=== PATIENT | male | born 1970 | race Two or more races ===

== ENCOUNTER → 2019-08-28 10:49 | Outpatient (CLI) | payer OTHER, SELFPAY ==
--- NOTE | ~2019-08-28 | US_ITS ---
EXAMINATION: US abdomen complete DATE: 08/28/2019 11:14 INDICATION: Abnormal liver function tests. TECHNIQUE: Multiple grayscale and Doppler ultrasound images of the abdomen were obtained. COMPARISON: None FINDINGS: The visualized portions of the head, body, and tail of the pancreas are normal. Abdominal a shannon is normal in caliber. Inferior vena cava is normal. The liver is normal without focal lesion. No liver surface nodularity. There is normal flow in main portal vein. The gallbladder is normal in siz e. No gallstones or gallbladder wall thickening. There was no sonographic Florez sign. The common claudia t is normal and measures 3 mm. The kidneys are normal in size. The spleen is normal in size. IMPRESSION: 1. Normal complete abdomen ultrasound. Reviewed, dictated and finalized at location A. F [employer]
== END ==
PROVIDERS: Visit Provider Emergency Medicine
DX: K76.9 Liver disease, unspecified (principal)
CPT/HCPCS: 76700

== ENCOUNTER 2019-12-31 00:21 | Outpatient (CLI) | payer OTHER, SELFPAY ==
[2019-12-31 17:00] LABS: SARS-CoV-2 RNA PCR Negative
== END 2019-12-31 00:22 | disposition home or self-care (01) ==
LOC: ANHCOVIDDT 00:21
PROVIDERS: PCP Emergency Medicine; Visit Provider Internal Medicine Gastroenterology
DX: Z01.818 Encounter for other preprocedural examination (principal); Z11.59 Encounter for screening for other viral diseases
CPT/HCPCS: 87635; C9803; U0003

== ENCOUNTER 2020-01-02 00:27 | Day surgery (SDC) | payer OTHER, SELFPAY ==
[2019-12-27 13:06] VITALS: BMI 29.0
[2020-01-02 06:30] VITALS: BP 127/101; PULSE 79; RESP 16; TEMP 36.2; O2SAT 100
[2020-01-02] MEDS: LACTATED RINGERS 1,000 ML 150 ML IV CONT (06:40)
--- NOTE | 2020-01-02 06:57 | WPDANESEPPF ---
Anes - Initial Pre Proc Eval Procedure: Operation Date: 01/02/20 07:30 Proposed Procedures p Screening Colonoscopy - Tono Giron MD Date/Time: 01/02/20 06:57 Surgeon: Tono Giron MD Pre Op Diagnosis: neoplasm screening Patient Data Age: 49 Gender: M Height: 5 ft 9 in Weight: 90.3 kg Last Vital Signs Temp 36.2 C L 01/02/20 06:30 Pulse 79 01/02/20 06:30 Resp 16 01/02/20 06:30 BP 127/101 H 01/02/20 06:30 Pulse Ox 100 01/02/20 06:30 Allergies Allergy/AdvReac Type Severity Reaction Status Date / Time No Known Allergies Allergy Unverified 01/02/20 06:28 Home Medications Medication Instructions Recorded Confirmed Type rmltrsnj-hev-qgdzf-vit K-lycop 400 tablet PO DAILY 12/27/19 12/27/19 History [Men's Multivitamin] omega 1-ops-nxk-fish oil [[place]-3] 350 cap PO DAILY 12/27/19 12/27/19 History rosuvastatin 10 mg PO DAILY 12/27/19 12/27/19 History Patient hx anesthesia problems: none Family hx anesthesia problems: none [facility] Past Medical History Medical History (Updated 01/02/20 @ 06:59 by Zander Sosa MD) Hyperlipidemia Social History Social History Smoking status: Never smoker Alcohol intake: never Gender identity (if verbalized by the patient): Male Anes - Eval Final PreProcedure Day of Procedure 01/02/20 06:57 Patient weight: overweight Heart: regular rate and rhythm Lungs: clear to auscultation Airway: Mallampati scale class II Neurological: alert and oriented Last oral intake: >/= 8 hours ASA classification: II Emergent: no Anesthetic plan: proceed Anesthesia type and monitoring: general GIVS and standard monitoring Informed Consent: The patient's anesthetic plan and its attendant risks and benefits were discussed with the patient/family/POA. Questions were solicited and answers provided to the satisfaction of the patient/family/POA.
--- NOTE | 2020-01-02 07:18 | P.HP_ITS ---
History of Present Illness History of Present Illness Consent: Risks, benefits, and alternatives have been discussed and questions answered. Patient agrees to proceed with procedure. Chief complaint: neoplasm screening Narrative: Arthur Mcdowell is a 49 year old male referred for colon cancer screening [facility] Past Medical History Medical History (Updated 01/02/20 @ 07:18 by Tono Giron MD) Hyperlipidemia Social History Social History Smoking status: Never smoker Alcohol intake: never Gender identity (if verbalized by the patient): Male Meds Home Medications and Allergies Home Medications Medication Instructions Recorded Confirmed Type aoeqrjxy-xyr-jxnbq-vit K-lycop 400 tablet PO DAILY 12/27/19 12/27/19 History [Men's Multivitamin] omega 6-eqm-coa-fish oil [[place]-3] 350 cap PO DAILY 12/27/19 12/27/19 History rosuvastatin 10 mg PO DAILY 12/27/19 12/27/19 History Allergies Allergy/AdvReac Type Severity Reaction Status Date / Time No Known Allergies Allergy Unverified 01/02/20 06:28 Vital Signs Vital Signs - 24 hr 01/02/20 06:30 Temperature 36.2 C L Pulse Rate 79 Respiratory Rate 16 Blood Pressure 127/101 H Pulse Oximetry 100 Exam Resp: Auscultation: clear to auscultation bilaterally Cardio: Rate: regular rate Rhythm: regular rhythm GI: GI Palp: Yes Soft to palpation and No Tenderness to palpation present (GI) Assessment and Plan Assessment and plan (1) Colon cancer screening: Code(s): Z12.11 - Encounter for screening for malignant neoplasm of colon Status: Acute Assessment and Plan: Colonoscopy with possible biopsy or polypectomy or cautery or injection of substances.
[2020-01-02 07:39] VITALS: BP 105/70; PULSE 60; RESP 15; O2SAT 97
[2020-01-02 07:49] VITALS: BP 109/77; PULSE 63; RESP 19; O2SAT 98
[2020-01-02 07:59] VITALS: BP 124/81; PULSE 56; RESP 18; O2SAT 98
== END 2020-01-02 08:20 | disposition home or self-care (01) ==
PROVIDERS: PCP Emergency Medicine; Visit Provider Internal Medicine Gastroenterology
PROC: 0DJD8ZZ Inspection of Lower Intestinal Tract, Via Natural or Artificial Opening Endoscopic (ICD-10-PCS; CPT 45378; principal; 2020-01-02 07:30)
DX: Z12.11 Encounter for screening for malignant neoplasm of colon (principal); E78.5 Hyperlipidemia, unspecified
CPT/HCPCS: 45378; J2704; J7120

== ENCOUNTER 2021-12-25 09:46 | Outpatient (CLI) | payer OTHER, SELFPAY ==
--- NOTE | ~2021-12-25 | XR_ITS ---
XR knee RT min 4V 12/25/2021 10:03 Indication: Right knee pain Procedure: 4 views right knee Comparison: No prior studies for comparison. Findings: No fracture, subluxation or dislocation. No significant joint effusion. No joint space narr owing. There is anatomic alignment. Impression: 1: No significant bone or joint abnormality. Reviewed, dictated and finalized at location B. Impression: 1: No significant bone or joint abnormality.
--- NOTE | ~2021-12-25 | XR_ITS ---
XR knee LT min 4V 12/25/2021 10:04 INDICATION: Left knee pain PROCEDURE: 4 views left knee COMPARISON: No prior studies for comparison. FINDINGS: Fracture, dislocation or subluxation is not identified. No significant joint effusion. The soft tissues appear within normal limits. No foreign bodies are identified. IMPRESSION: 1: NO ACUTE BONE OR JOINT ABNORMALITY IDENTIFIED. Reviewed, dictated and finalized at location B.
== END 2021-12-25 09:47 | disposition home or self-care (01) ==
LOC: ANHIMG 09:46
PROVIDERS: PCP Internal Medicine; Visit Provider Nurse Practitioner
DX: M25.561 Pain in right knee (principal); M25.562 Pain in left knee
CPT/HCPCS: 73564

== ENCOUNTER 2023-01-20 08:10 | Outpatient (CLI) | payer OTHER, SELFPAY ==
--- NOTE | ~2023-01-20 | US_ITS ---
EXAMINATION: US soft tissue groin RT DATE: 01/20/2023 08:52 INDICATION: Right lower quadrant/groin pain. TECHNIQUE: Multiple grayscale and Doppler ultrasound images of the region of concern at the right ing uinal region were obtained. COMPARISON: None FINDINGS: Normal right inguinal lymph node measuring 5 mm in maximal short axis diameter with central fatty hil um. No evident inguinal hernia or other abnormal masses or fluid collections identified. Visualized p ortions of the bilateral testes appear normal and symmetric. IMPRESSION: 1. Normal ultrasound of the right inguinal region. Reviewed, dictated and finalized at location L.
== END 2023-01-20 08:11 | disposition home or self-care (01) ==
PROVIDERS: PCP Internal Medicine; Visit Provider Clinical Nurse Specialist
DX: R10.31 Right lower quadrant pain (principal)
CPT/HCPCS: 76882

== ENCOUNTER 2023-01-28 09:41 | Outpatient (CLI) | payer OTHER, SELFPAY ==
--- NOTE | ~2023-01-28 | CT_ITS ---
CT of the Abdomen and Pelvis: Indication: Abdominal pain Technique: 2.5 mm axial scans were obtained through the abdomen and pelvis following intravenous adm inistration of 100 cc of Omnipaque 350. Dose reduction technique was used on this scan by utilizing a utomated exposure control and iterative reconstruction technique. The dose-length product (DLP) was 5 19.68 mGy-cm. Findings: Scans through the lung bases are unremarkable. The liver, spleen, pancreas, gallbladder, adrenals and kidneys are within normal limits. No evidence of aortic aneurysm. No lymphadenopathy. No bowel obstruction or bowel wall thickening. There is no evidence to suggest acute appendicitis. Images through the pelvis were performed. Urinary bladder is unremarkable. Prostate gland and seminal vesicles are unremarkable. Impression: No significant abnormalities seen. Reviewed, dictated and finalized at [facility]. Impression: No significant abnormalities seen.
== END 2023-01-28 09:42 | disposition home or self-care (01) ==
PROVIDERS: PCP Internal Medicine; Visit Provider Clinical Nurse Specialist
DX: R10.9 Unspecified abdominal pain (principal)
CPT/HCPCS: 74177; Q9967

== ENCOUNTER → 2023-03-14 16:03 | Outpatient (CLI) | payer OTHER, SELFPAY ==
--- NOTE | ~2023-03-14 | MR_ITS ---
MRI of the left hindfoot/midfoot Clinical history: Ganglion cyst Technique: Coronal proton-density and proton-density fat-sat images, axial proton-density and proton- density fat-sat images, and sagittal proton-density and proton-density fat-sat images were acquired. Findings: Syndesmotic ligaments are intact. Anterior and posterior talofibular ligaments, and calcane ofibular ligament are intact. Deltoid ligament is intact. Medial flexor tendons, anterior extensor tendons, peroneal tendons, and Achilles tendon are intact. There is no osteochondral lesion of the talar dome. Bone marrow signals are unremarkable. Joint space s are preserved. No joint effusion present. There is a 7 mm simple appearing cystic lesion superficially at the dorsal lateral aspect of the hind foot, at the location of the marker, compatible with a small ganglion cyst or possibly small schwanno ma. No other soft tissue mass or fluid collection seen. Visualized musculature unremarkable. Plantar fascia intact. Impression: 7 mm circumscribed round lesion at the dorsal lateral aspect of the hindfoot superficially, at the lo cation of the marker. Likely diagnostic considerations would include ganglion cyst or possibly small schwannoma. Postcontrast imaging would be required to definitively determine solid versus cystic lesi on. Reviewed, dictated and finalized at location M. Impression: 7 mm circumscribed round lesion at the dorsal lateral aspect of the hindfoot neumann perficially, at the location of the marker. Likely diagnostic considerations wo uld include ganglion cyst or possibly small schwannoma. Postcontrast imaging wo uld be required to definitively determine solid versus cystic lesion.
== END ==
PROVIDERS: PCP Podiatrist Foot & Ankle Surgery; Visit Provider Podiatrist Foot & Ankle Surgery
DX: M67.472 Ganglion, left ankle and foot (principal)
CPT/HCPCS: 73718

== ENCOUNTER 2023-05-27 03:05 | Day surgery (SDC) | payer OTHER, SELFPAY ==
[2023-05-24 08:38] VITALS: BMI 28.1
--- NOTE | 2023-05-24 08:41 | PC.NURSE ---
Report to the Outpatient Waiting Room, entrance under the green pavilion located off [facility], at time 0600 on date 05/27/23. Planned Procedure Time: 0730. Time changes happen often and if your time is changed the preop area will call you the afternoon before. - You and your visitor will be asked to self-screen and do not enter if you have any COVID symptoms. - A mask is optional within the hospital at this time. Patients may have clear liquids (water, carbonated beverages, clear teas, apple juice) until 3 hours prior to surgery with a maximum of 20 ounces. - No food from midnight until time of surgery Take the following medications with a SIP of water the morning of surgery: NONE DO NOT STOP ANY OF YOUR OTHER PRESCRIPTION MEDICATIONS PRIOR TO SURGERY ?EXCEPT THE FOLLOWING Medications to discontinue per physician: VITAMINS/SUPPLEMENTS Date to take last dose: NO MORE UNTIL AFTER SURGERY Please no make-up, nail algerian, hairspray, perfume, deodorant, or body powder the day of surgery. No jewelry (including any body piercings) or valuables the day of surgery, leave them at home. Please take a shower or bath the night before, or the morning of, surgery with an antibacterial soap. Wear comfortable, loose fitting clothing. - Jewelry must be removed prior to entering the operating room. Rings and piercings that are not removed may be cut off. - The hospital will not accept responsibility for valuables. - Please leave all valuables, including medications, at home the day of surgery. If you are going home after surgery, a licensed regional owner operator truck driver must drive you home. - NO public transportation without another adult if you receive anesthesia. - We recommend that an adult stay with you for 24 hours following discharge. - We also recommend that you do not drive, make important decision, drink alcoholic beverages, or take any drugs that were not prescribed by your health care provider for at least 24 hours after your discharge time. Follow any additional instructions given to you from your surgeon. If you or anyone in your household have experienced Covid symptoms in the past week, please notify your surgeon or the nurse liaison at the phone number below for possible testing. Telephone instructions given to PT - ABHAY HI and asked if any additional questions and then verbalized understanding. Patient advised to call surgeon office or pre surgery nurse liaison [phone] if any additional questions.
[2023-05-27 06:46] VITALS: BP 144/84; PULSE 51; RESP 20; TEMP 36.3; O2SAT 100
[2023-05-27] MEDS: LACTATED RINGERS 1,000 ML 30 ML IV CONT (06:46)
--- NOTE | 2023-05-27 07:12 | WPDHPUPDATE1 ---
History and Physical Update Update Date/Time: 05/27/23 07:12 History and Physical has been reviewed, including an updated exam of the patient. There are NO changes in the patient's condition. Risks, benefits, and alternatives have been discussed and questions answered. Patient agrees to proceed with procedure.
--- NOTE | 2023-05-27 07:15 | WPDANESEPPF ---
Anes - Initial Pre Proc Eval Procedure: Operation Date: 05/27/23 07:30 Proposed Procedures p Excision of Soft Tissue Mass Left Foot - Nando Rojas JR, MD Date/Time: 05/27/23 07:15 Surgeon: Nando Rojas JR, MD Pre Op Diagnosis: soft tissue mass left foot Patient Data Age: 52 Gender: M Height: 1.74 m Weight: 87.9 kg Last Vital Signs Temp 36.3 C L 05/27/23 06:46 Pulse 51 L 05/27/23 06:46 Resp 20 05/27/23 06:46 BP 144/84 H 05/27/23 06:46 Pulse Ox 100 05/27/23 06:46 O2 Del Method Room Air 05/27/23 06:46 Allergies Allergy/AdvReac Type Severity Reaction Status Date / Time No Known Allergies Allergy Verified 05/24/23 08:37 Home Medications Medication Instructions Recorded Confirmed Type wxrkwvaq-zdbxsths-mezpm acid 400 400 tablet PO DAILY 12/27/19 05/27/23 History mcg-vit K 20 mcg-lycop 300 mcg tablet (Men's Multivitamin) omega 3 350 mg-dha 235 mg-epa 90 350 cap PO DAILY 12/27/19 05/27/23 History mg-fish oil 597 mg capsule,delay rel ([place]-3) rosuvastatin 10 mg tablet 10 mg PO DAILY #90 tabs 12/22/22 05/27/23 Rx cetirizine 10 mg tablet (Zyrtec) 10 mg PO DAILY 05/24/23 05/27/23 History Patient hx anesthesia problems: none Family hx anesthesia problems: none Results Review: All pre-operative results and documents have been reviewed as part of the pre-operative evaluation. [facility] Past Medical History Medical History Bilateral knee pain Colon cancer screening Cough Encounter for surgical aftercare following surgery on the skin and subcutaneous tissue Epidermoid cyst Hyperlipidemia Localized swelling, mass and lump, unspecified Screening for prostate cancer Surgical History Surgical History H/O excision of epidermal inclusion cyst History of colonoscopy Family History Family History Sibling Breast cancer Grandparent Breast cancer Malignant neoplasm of prostate Social History Social History (Updated 01/12/23 @ 08:17 by Kandice Toscano MA) Social History: Caffeine-daily coffee Smoking status: Never smoker Alcohol intake: current Drinks per week: 2 Alcohol use details: social Substance use: never Substance use type: does not use Lack of Transportation: No Lack of Food: Never True Current Housing: I Have Housing Concerned About Future Housing: No Difficulty Paying Gas/Electric Bills: No Difficulty Paying for Meds: No Education: Master's Degree or Higher Difficulty w/ Childcare or Family Care: No Living arrangements: with family Occupation/Education: occupation 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 Informed Consent: The patient's anesthetic plan and its attendant risks and benefits were discussed with the patient/family/POA. Questions were solicited and answers provided to the satisfaction of the patient/family/POA.
[2023-05-27] MEDS: ceFAZolin 2 GM/D5W 50 ML 2 GM/50 ML BAG IVPB (07:25)
[2023-05-27] MEDS: LIDOCAINE HCL 2% PF INJ 5 ML VIAL 20 ML INFILTRATE (07:45)
[2023-05-27 08:06] VITALS: BP 105/64; PULSE 64; RESP 16; O2SAT 96
--- NOTE | 2023-05-27 08:13 | W.PM.PROC2 ---
Procedure Note - Detailed Date of Procedure 05/27/23 Pre-op Diagnosis Soft tissue mass left foot Post-op Diagnosis Same Procedure Performed Excision of soft tissue mass left foot Surgeon Nando Rojas JR, DPM Anesthesia MAC and Local Indications Painful firm soft tissue mass left foot Findings Nerve sheath hypertrophy a nodule along the intermediate dorsal cutaneous nerve Description of Procedure PROCEDURE IN DETAIL: Under mild sedation, the patient was brought into the operating room, placed on the operating table in sligth lateral position with a mahan bag. A pneumatic ankle tourniquet was placed about the patient's ankle. Following general anesthesia, a local anesthetic block was obtained about the foot and ankle utilizing 20 cc of a 1:1 of 2% Lidocaine plain and 0.5% Marcaine plain. The foot was then scrubbed, prepped, and draped in the usual aseptic manner. An Esmarch bandage was then used to exsanguinate the patient's foot and the pneumatic ankle tourniquet was then inflated. Surgery began in the following manner: Attention was directed to the lateral aspect of the midfoot and hindfoot region. The incision was made overlying the visible soft tissue mass. The incision was continued deep down through the subcutaneous tissues using sharp and blunt dissection. All bleeders were cauterized as necessary. At this point, the dissection was continued down to the superficial fascial layer at this point a noted 1cm hypertrophic nodule was noted to the intermediate dorsal cutaenous nerve. The entire mass was excised and sent for gross and histopathology. I dissected the fascia overlying the extensor digitorum muslce with blunt tenotomy scissors. The proximal resected healthy portion of the nerve was sutured to the extensor digitorum brevis muscle belly, 4-0 Vicryl was used. Next, the fascia layer overlying the extensor digitorum muscle was repaired overlying the resected nerve. The operative site was flushed with copious amount of sterile saline. Finally, the subcutaneous structures were reapproximated with 4-0 Vicryl. Next, the skin was reapproximated and coapted utilizing 4-0 Monocryl in running subcuticular suture fashion technique. Upon completion of the procedure, the incision was dressed with Steri-Strips, Adaptic, 4x4s, Kerlix, and Coban. The pneumatic ankle tourniquet was then deflated and a prompt hyperemic response was noted to all digits of the foot. A surgical shoe was then applied to the affected lower extremity. It is important to note that Dr. Rojas was present throughout the procedure. The patient did very well with the procedure and the anesthesia. The patient was transferred to the recovery room with vital signs stable and vascular status intact to all toes of the foot. Following a period of postoperative monitoring, the patient will be discharged home on the following written and oral postoperative instructions: 1. Keep the dressing clean, dry, and intact. 2. The patient to be protected weight bearing with a surgical shoe. 3. The patient should ice and elevate the affected foot when at rest. 4. The patient should contact Dr. Rojas for all postop care and if any problems should arise. The patient will follow up in one week for the post op visit. 5. Prescriptions were written for Percocet 5/325, dispensed 40 to be taken 1 p.o. q.4-6 hours as needed for severe pain. Furthermore, the patient should take Aspirin 325 once daily for two weeks to prevent DVT. Estimated Blood Loss 1 Drains No Packing No Pathology Yes (1cm nodule sent for gross and histopathology) Complications No immediate complications Condition Stable Disposition Same day
[2023-05-27 08:35] VITALS: BP 118/79; PULSE 60; O2SAT 100
[2023-05-27 09:05] VITALS: BP 139/81; PULSE 46
== END 2023-05-27 09:14 | disposition home or self-care (01) ==
PROVIDERS: PCP Internal Medicine; Visit Provider Podiatrist Foot & Ankle Surgery
PROC: (CPT 28043; principal; 2023-05-27 07:30)
DX: D36.13 Benign neoplasm of peripheral nerves and autonomic nervous system of lower limb, including hip (principal); E78.00 Pure hypercholesterolemia, unspecified; Z80.3 Family history of malignant neoplasm of breast; Z80.42 Family history of malignant neoplasm of prostate
CPT/HCPCS: 28043; 88304; J0690; J1100; J2250; J2371; J2405; J2704; J3010; J7120